=== PATIENT | male | born 1990 | race Caucasian/White ===

== ENCOUNTER 2021-08-27 08:10 | Emergency (ER) | payer SELFPAY ==
[~2021-08-27 08:10] MED LIST: BACTROBAN NASAL1 GM TOP; CEPHALEXIN500 MG PO
[2021-08-27] MEDS ORDERED: NAPROXEN500 MG PO (08:45)
[2021-08-27] MEDS ORDERED: AUGMENTIN 875-1 EACH PO (08:45)
== END 2021-08-27 09:12 | disposition home or self-care (01) ==
LOC: FER 08:10
DX: K04.7 Periapical abscess without sinus (principal); K02.9 Dental caries, unspecified; F17.210 Nicotine dependence, cigarettes, uncomplicated
CPT/HCPCS: J2930